=== PATIENT | female | born 1950 | race Two or more races ===

== ENCOUNTER → 2024-08-16 | Outpatient (BNVA) | payer MEDICARE, OTHER, SELFPAY | END | disposition home or self-care (01) | PROVIDERS: PCP Internal Medicine; Referring Provider Internal Medicine; Visit Provider Urology | DX: N13.1 Hydronephrosis with ureteral stricture, not elsewhere classified (principal); Z96.0 Presence of urogenital implants; Z87.440 Personal history of urinary (tract) infections; I10 Essential (primary) hypertension; E78.00 Pure hypercholesterolemia, unspecified; E11.9 Type 2 diabetes mellitus without complications | CPT/HCPCS: 81003; 99212; G0463 ==

== ENCOUNTER 2024-09-11 08:06 | Day surgery (SDC) | payer MEDICARE, OTHER, SELFPAY ==
--- NOTE | 2024-09-10 11:00 | EKG_ITS ---
[facility] Test Date: 2024-09-10 Pat Name: TEDDY VAZQUEZ Department: Room: - Gender: Female Automobile Body Repairer: JNatalee : 1950 Requested By: Reji Guillaume Order Number: [id number] Reading MD: Reji Guillaume Measurements Intervals [place] Rate: 69 P: 43 TX: 173 QRS: -37 QRSD: 97 T: 6 QT: 415 QTc: 446 Interpretive Statements SINUS RHYTHM MARKED LEFT AXIS DEVIATION PATTERN CONSISTENT WITH PULMONARY DISEASE MODERATE VOLTAGE CRITERIA FOR LVH, CONSIDER NORMAL VARIANT Compared to ECG 06/20/2023 12:19:20 Sinus bradycardia no longer present /store/S0/[id number]
[2024-09-10 11:11] VITALS: BMI 27.7
[2024-09-10 12:47] LABS: Alanine Aminotransferase 16 U/L (10-49); Albumin, Serum 4.5 gm/dL (3.4-4.8); Albumin/Globulin Ratio 1.5 (1.2-2.2); Alkaline Phosphatase 61 U/L (46-116); Anion Gap 8 (7-16); Aspartate Amino Transferase 17 U/L (0-34); BUN/Creatinine Ratio 22 Ratio (12-20); Bilirubin,Total 0.3 mg/dL (0.3-1.2); Blood Urea Nitrogen 13 mg/dL (9-23); Calcium 9.8 mg/dL (8.3-10.6); Calcium (Corrected) 9.8 mg/dL (8.5-10.1); Carbon Dioxide 28.7 mMol/L (20.0-31.0); Chloride 109 mMol/L (98-107); Creatinine (Component) 0.6 mg/dL (0.6-1.3); Globulin 3.1 gm/dL (2.3-3.5); Glucose 150 mg/dL (74-106); Osmolality,Calculated 293 (275-295); Potassium 3.2 mMol/L (3.4-5.1); Sodium 146 mMol/L (136-145); Total Protein 7.6 gm/dL (5.7-8.2); eGFR > 60 See Note
[2024-09-11] VITALS (7 sets, daily range): BP systolic 112–150; BP diastolic 60–91; PULSE 65–84; RESP 16–20; TEMP 36.1–36.3; O2SAT 98–100; BMI 27.3
[2024-09-11] MEDS: RINGERS LACTATED 1000 ML 1,000 ML 20 ML IV (08:49)
--- NOTE | 2024-09-11 10:00 | XR_ITS ---
Examination: Left retrograde pyelogram with without KUB Fluoroscopy AP abdomen 2 spot fluoroscopic views Exam date and time: September 11, 2024 at 12:05 PM INDICATIONS: History left flank pain and left hydronephrosis on renal sonogram October 10, 2022, ureteral stent replacement today TECHNIQUE AND FINDINGS: 2 spot fluoroscopic abdomen films obtained Left ureteral stent satisfactory position Fluoroscopy 55 seconds radiation dose 4.33 milligray IMPRESSION: Left ureteral stent satisfactory position
--- NOTE | 2024-09-11 11:11 | SUR.PHASEI ---
1111 Patient arrived to recovery resting comfortably in [facility], on oxygen 10L via nasal cannula inserted into LMA, breathing unlabored, vital signs stable, lung sounds clear upon auscultation, bilateral radial pulses present when palpated, urinary catheter 16F in place with leg secure; draining to gravity, will pink color fluid in carter bag, report received from Max DAMIAN and Josh PARK
--- NOTE | 2024-09-11 11:26 | PD.SUROPNT ---
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 Wright at [facility]. She has chronic left hydroureteronephrosis. 1 week ago she had left flank pain and she went to the emergency room [facility] she was diagnosed diagnosed with the left ureteral obstruction due to possible 9 mm stone at the ureteropelvic junction left side on CAT scan of the abdomen and pelvis done and left hydroureteronephrosis. I saw her in the office, there were no films of the x-ray available for me to review I saw the report of the CAT scan I recommended above procedure procedure and complications were discussed with the patient in great detail informed consent is obtained Patient was brought to the operating room in a satisfactory condition after appropriate premedication she was put on the operating table in a spine position she was appropriately identified by surgeon and operating room staff site scope and indications of the procedure were reconfirmed with the patient general anesthesia was given uneventfully patient was positioned in a dorsal lithotomy position parts were prepped and draped in the usual sterile fashion. Next 21 cystoscope was used to do the cystourethroscopy. At this time patient received perioperative antibiotics and 20 mg of Lasix IV was given for diuresis as well as prevention of infectious pyelocalyceal complication. Examination of bladder in all the quadrant was carried out she has a very coarse bladder trabeculation and shallow diverticuli particularly on the left side. She had an ectopic ureteral orifice near the dome of the bladder I was able to locate the orifice open-ended Pollick catheter was inserted and I passed the safety wire into the upper pole calyx under fluoroscopic examination. Retrograde pyelogram was performed this revealed hydroureteronephrosis left side which is chronic. Next cystoscope was withdrawn gently and semirigid ureteroscope was to do the ureteroscopy. I passed the semirigid ureteroscope under fluoroscopic examination up to the renal pelvis there was no stone identified and there was no evidence of inflammation at the ureteropelvic junction. At this time ureteroscope was removed and I decided to place 26 cm long stent 6 Irish double-J under fluoroscopic examination proximal and curled in the upper pole calyx distal in the bladder instrument was withdrawn gently #16 Ruiz catheter was inserted patient after having tolerated the procedure well was moved to recovery room in a satisfactory condition patient disposition She will see me in the office in 4 days time for removal of the stent Anesthesia GETA Pathology / specimen None Estimated Blood Loss 0.5 Disposition PACU Surgeon César Rizo MD Surgical Staff Operation Date: 09/11/24 10:15 Case Staff TIRE AND TUBE REPAIRER: Rene George
--- NOTE | 2024-09-11 11:45 | SUR.PHASEII ---
1145 Ruiz catheter discontinued per MD order, patient tolerated well
--- NOTE | 2024-09-11 12:10 | SUR.PHASEII ---
1210 Patient meets discharge criteria from recovery, awake and alert, breathing unlabored, vital signs stable, denies pain, patient voided in the restroom prior to discharge, drinking water; tolerating well, denies nausea, patient assisted with dressing into her clothing by her , discharge instructions given to patient and patient , signed discharge instructions. Patient given all her belongings prior to discharge, transported via wheelchair and left in a private vehicle.
== END 2024-09-11 12:10 | disposition home or self-care (01) ==
PROVIDERS: Anesthesiology; PCP Internal Medicine; Referring Provider Urology; Visit Provider Urology
PROC: 0TJB8ZZ Inspection of Bladder, Via Natural or Artificial Opening Endoscopic (ICD-10-PCS; CPT 52000; principal; 2024-09-11 10:00)
DX: N13.4 Hydroureter (principal); N32.89 Other specified disorders of bladder; Z01.810 Encounter for preprocedural cardiovascular examination
CPT/HCPCS: 52332; 36415; 74420; 80053; 93005; A4217; A4649; C1769; C1894; C2617; J1580; J2250; J2704; J3010; J3370; J3490; J7120; J1596

== ENCOUNTER → 2024-09-16 | Outpatient (BNVA) | payer MEDICARE, OTHER, SELFPAY | END | disposition home or self-care (01) | PROVIDERS: PCP Internal Medicine; Referring Provider Internal Medicine; Visit Provider Urology | DX: N20.1 Calculus of ureter (principal); Z96.0 Presence of urogenital implants; N35.92 Unspecified urethral stricture, female; N13.4 Hydroureter; I10 Essential (primary) hypertension; E78.00 Pure hypercholesterolemia, unspecified; E11.9 Type 2 diabetes mellitus without complications | CPT/HCPCS: 52310; 81003; 96372; A4217; A4649; C1894; J1580; A9270 ==

== ENCOUNTER → 2025-05-09 | Outpatient (BNVA) | payer MEDICARE, OTHER, SELFPAY | END | disposition home or self-care (01) | PROVIDERS: PCP Internal Medicine; Referring Provider Internal Medicine; Visit Provider Urology | DX: N35.92 Unspecified urethral stricture, female (principal); I10 Essential (primary) hypertension | CPT/HCPCS: 81003; 99212; G0463 ==

== ENCOUNTER → 2025-05-09 | Outpatient (CLI) | payer MEDICARE, OTHER, SELFPAY ==
--- NOTE | 2025-05-09 12:44 | XR_ITS ---
Examination: Abdomen AP single view Technique: AP portable supine abdomen, single view Exam date and time: April, 1315 hours INDICATIONS: Status post stent removal, diagnosis endometrial carcinoma FINDINGS: Abundant stool throughout the colon No ureteral stents. Surgical clips upper right abdomen and in the pelvis IMPRESSION: Abundant stool throughout the colon 8
== END | disposition home or self-care (01) ==
LOC: CDIM 12:35
PROVIDERS: Referring Provider Urology; Visit Provider Urology
DX: K59.00 Constipation, unspecified (principal)
CPT/HCPCS: 74018